=== PATIENT | female | born 1950 | race African-American/Black ===

== ENCOUNTER → 2017-12-20 | Outpatient (CLI) | payer OTHER | END | disposition home or self-care (01) | LOC: MA 12:53 | PROC: BH02ZZZ Plain Radiography of Bilateral Breasts (ICD-10-PCS; principal; 2017-12-20) | DX: Z12.31 Encounter for screening mammogram for malignant neoplasm of breast (principal) | CPT/HCPCS: 77067 ==

== ENCOUNTER → 2018-12-04 | Outpatient (CLI) | payer OTHER | END | disposition home or self-care (01) | LOC: MI 12:09 | PROC: BQ31ZZZ Magnetic Resonance Imaging (MRI) of Left Hip (ICD-10-PCS; principal; 2018-12-04) | DX: M25.552 Pain in left hip (principal) ==